=== PATIENT | female | born 1995 ===

== ENCOUNTER 2022-04-13 13:13 | Emergency (ER) | payer OTHER ==
[~2022-04-13] VITALS: Ht 157.5 cm; Wt 60.9 kg
[2022-04-13 13:50] VITALS: BP 120/70
== END 2022-04-13 15:56 | disposition left against medical advice (07) ==
LOC: ER 13:15
DX: J32.9 Chronic sinusitis, unspecified (principal); Z53.21 Procedure and treatment not carried out due to patient leaving prior to being seen by health care provider